=== PATIENT | male | born 1960 | race Caucasian/White ===

== ENCOUNTER → 2020-09-06 | Day surgery (SDC) | payer BC ==
[2020-09-03 12:51] LABS: BASOPHILS % 0.3 % (0.0-1.0); EOSINOPHILS # (AUTO) 0.1 (0.0-0.4); EOSINOPHILS % 2.3 % (0.0-6.0); HEMATOCRIT 41.5 % (38.2-49.6); HEMOGLOBIN 14.2 g/dL (14.0-18.0); LYMPHOCYTES % 17.2 % (18.0-39.1); MEAN CORPUSCULAR HGB CONC 34.2 g/dL (31-35); MEAN CORPUSCULAR VOLUME 96.5 fL (81-99); MONOCYTES # (AUTO) 0.6 (0.2-0.8); MONOCYTES % 10.4 % (4.4-11.3); NEUTROPHILS # (AUTO) 4.2 (2.1-6.9); NEUTROPHILS % 69.5 % (38.7-80.0); PLATELET COUNT 158 x10e3/uL (140-360); RED CELL DISTRIBUTION WIDTH 13.8 % (11.7-14.4)
[2020-09-03 13:04] LABS: ALANINE AMINOTRANSFERASE 35 IU/L (0-55); ALBUMIN 4.2 g/dL (3.5-5.0); ALBUMIN/GLOBULIN RATIO 1.4 (0.8-2.0); ALKALINE PHOSPHATASE 65 IU/L (40-150); ANION GAP 17.1 mmol/L (8-16); BLOOD UREA NITROGEN 13 mg/dL (7-26); BUN/CREATININE RATIO 11 (6-25); CALCIUM 8.6 mg/dL (8.4-10.2); CARBON DIOXIDE 25 mmol/L (22-29); CHLORIDE 105 mmol/L (98-107); CREATININE, SERUM 1.22 mg/dL (0.72-1.25); EST GLOMERULAR FILTRATION RATE > 60 ML/MIN (60-); GLUCOSE 113 mg/dL (74-118); POTASSIUM 4.1 mmol/L (3.5-5.1); SODIUM 143 mmol/L (136-145)
[~2020-09-06] MED LIST: ASPIRIN325 MG PO; B&O 60MG R/S 60 MG SUPP PR ONE; CEFTRIAXONE SOD 1 GM/NS 50 ML 50 ML IV ONE; DEXAMETHASONE SOD PHOS INJ 4 MG/ML VIAL ONE; FENTANYL CITRATE/PF 100MCG/2 ML INJ ONE; GENTAMICIN 80MG/NS 100 ML 100 ML IV ONE; IOPAMIDOL 300MG/ML 50ML INFUS..BTL IV ONE; LIDOCAINE HCL 2% JELLY 5 ML TUBE ONE; LIDOCAINE HCL 2% LOCAL INJ 5 ML SDV VIAL INJ ONE; MIDAZOLAM HCL 2 MG/2 ML VIAL ONE; ONDANSETRON HCL INJ 2MG/ML 2ML 2 MG/ML VIAL ONE; PROPOFOL IV EMULSION 10 MG/ML 20 ML VIAL ONE; ROCURONIUM BROMIDE 10 MG/ML 5ML VIAL IV ONE; SEVOFLURANE INHAL SOLN 250 ML PEN BTL ONE; SUCCINYLCHOLINE CHLORIDE 20 MG/ML 10ML VIAL ONE
[2020-09-06 16:37] VITALS: BP 175/79
== END | disposition home or self-care (01) ==
LOC: OR 12:55
PROVIDERS: ATTEND Urology
DX: N20.0 Calculus of kidney (principal); N32.89 Other specified disorders of bladder; N40.0 Benign prostatic hyperplasia without lower urinary tract symptoms; R35.1 Nocturia; I86.1 Scrotal varices; E66.9 Obesity, unspecified; Z01.810 Encounter for preprocedural cardiovascular examination; Z01.812 Encounter for preprocedural laboratory examination; Z20.828 Contact with and (suspected) exposure to other viral communicable diseases; Z79.82 Long term (current) use of aspirin; Z68.42 Body mass index [BMI] 45.0-49.9, adult; Z84.1 Family history of disorders of kidney and ureter
CPT/HCPCS: 36415; 52356; 74420; 80053; 83970; 84550; 85025; 93005; J0330; J0696; J1100; J1580; J2001 ×2; J2250; J2405; J2704; J3010; Q9967; U0002; C2617

== ENCOUNTER → 2020-12-04 | Day surgery (SDC) | payer BC ==
[~2020-12-04] MED LIST changes: +CEFTRIAXONE SOD 1 GM VIAL ONE; -CEFTRIAXONE SOD 1 GM/NS 50 ML 50 ML IV ONE; -GENTAMICIN 80MG/NS 100 ML 100 ML IV ONE; +LEVOFLOXACIN 250MG/D5W 50ML 50 ML ONE; +LEVOFLOXACIN 500MG/D5W 100ML 100 ML IV ONE; +LEVOFLOXACIN250 MG PO; -ROCURONIUM BROMIDE 10 MG/ML 5ML VIAL IV ONE; +SODIUM CHLORIDE 0.9% 50ML 100 ML ONE; -SUCCINYLCHOLINE CHLORIDE 20 MG/ML 10ML VIAL ONE
[2020-12-04 11:15] VITALS: BP 149/82
== END | disposition home or self-care (01) ==
LOC: OR 06:34
PROVIDERS: ATTEND Urology
DX: N20.0 Calculus of kidney (principal); N13.30 Unspecified hydronephrosis; N40.1 Benign prostatic hyperplasia with lower urinary tract symptoms; N13.8 Other obstructive and reflux uropathy; Z46.6 Encounter for fitting and adjustment of urinary device; N28.89 Other specified disorders of kidney and ureter; G47.33 Obstructive sleep apnea (adult) (pediatric); E66.9 Obesity, unspecified; M19.90 Unspecified osteoarthritis, unspecified site; M06.9 Rheumatoid arthritis, unspecified; F17.210 Nicotine dependence, cigarettes, uncomplicated; Z88.8 Allergy status to other drugs, medicaments and biological substances; Z01.810 Encounter for preprocedural cardiovascular examination; Z79.82 Long term (current) use of aspirin; Z86.16 Personal history of COVID-19
CPT/HCPCS: 52332; 52352; 74420; 87086; 88300; 93005; C1766; C1769; C2617; J0696; J1100; J1956 ×2; J2001 ×2; J2250; J2405; J2704; J3010; Q9967

== ENCOUNTER → 2021-01-01 | Day surgery (SDC) | payer BC ==
[~2021-01-01] MED LIST changes: -LEVOFLOXACIN 250MG/D5W 50ML 50 ML ONE; -LEVOFLOXACIN 500MG/D5W 100ML 100 ML IV ONE; -LIDOCAINE HCL 2% JELLY 5 ML TUBE ONE; -SODIUM CHLORIDE 0.9% 50ML 100 ML ONE; +SODIUM CHLORIDE 0.9% 50ML 50 ML ONE
[2021-01-01 12:10] VITALS: BP 145/72
== END | disposition home or self-care (01) ==
LOC: OR 07:43
PROVIDERS: ATTEND Urology
DX: N20.0 Calculus of kidney (principal); Z46.6 Encounter for fitting and adjustment of urinary device; N32.89 Other specified disorders of bladder; N28.89 Other specified disorders of kidney and ureter; G47.33 Obstructive sleep apnea (adult) (pediatric); I45.10 Unspecified right bundle-branch block; Z88.8 Allergy status to other drugs, medicaments and biological substances; Z01.818 Encounter for other preprocedural examination; Z79.82 Long term (current) use of aspirin; Z86.16 Personal history of COVID-19
CPT/HCPCS: 52356; 74018; 74420; 88300; C1766; C2617; J0696; J1100; J2001; J2250; J2405; J2704; J3010; Q9967

== ENCOUNTER 2021-01-08 09:47 | Inpatient (IN) | payer BC ==
[~2021-01-08] VITALS: Ht 190.5 cm; Wt 168.7 kg
[~2021-01-08 09:47] MED LIST changes: -B&O 60MG R/S 60 MG SUPP PR ONE; -CEFTRIAXONE SOD 1 GM VIAL ONE; -DEXAMETHASONE SOD PHOS INJ 4 MG/ML VIAL ONE; -FENTANYL CITRATE/PF 100MCG/2 ML INJ ONE; -IOPAMIDOL 300MG/ML 50ML INFUS..BTL IV ONE; -LIDOCAINE HCL 2% LOCAL INJ 5 ML SDV VIAL INJ ONE; -MIDAZOLAM HCL 2 MG/2 ML VIAL ONE; -ONDANSETRON HCL INJ 2MG/ML 2ML 2 MG/ML VIAL ONE; -PROPOFOL IV EMULSION 10 MG/ML 20 ML VIAL ONE; -SEVOFLURANE INHAL SOLN 250 ML PEN BTL ONE; -SODIUM CHLORIDE 0.9% 50ML 50 ML ONE
[2021-01-08] MEDS ORDERED: ACETAMINOPHEN 325 MG TAB PO ONE (10:30)
[2021-01-08] MEDS ORDERED: ACETAMINOPHEN 325 MG TAB ONE (10:31)
[2021-01-08 10:35] LABS: BASOPHILS % 0.2 % (0.0-1.0); EOSINOPHILS % 0.4 % (0.0-6.0); HEMATOCRIT 41.1 % (38.2-49.6); LYMPHOCYTES # (AUTO) 0.8 (1.0-3.2); LYMPHOCYTES % 7.5 % (18.0-39.1); MEAN CORPUSCULAR HEMOGLOBIN 33.4 pg (28-32); MEAN CORPUSCULAR HGB CONC 34.1 g/dL (31-35); MEAN CORPUSCULAR VOLUME 98.1 fL (81-99); MONOCYTES # (AUTO) 1.2 (0.2-0.8); MONOCYTES % 10.8 % (4.4-11.3); NEUTROPHILS % 80.7 % (38.7-80.0); PLATELET COUNT 165 x10e3/uL (140-360); RED BLOOD COUNT 4.19 x10e6/uL (4.3-5.7); RED CELL DISTRIBUTION WIDTH 13.3 % (11.7-14.4)
[2021-01-08 10:47] LABS: CLARITY,URINE SL CLOUDY (CLEAR); COLOR,URINE YELLOW (YELLOW); KETONES,URINE NEGATIVE (NEGATIVE); LEUKOCYTE ESTERASE ,URINE MODERATE (NEGATIVE); NITRITE,URINE NEGATIVE (NEGATIVE); PROTEIN,URINE DIPSTICK 2+ (NEGATIVE); URINE UROBILINOGEN 0.2 mg/dL (0.2 - 1)
[2021-01-08 10:55] LABS: ALBUMIN 3.9 g/dL (3.5-5.0); ALBUMIN/GLOBULIN RATIO 1.1 (0.8-2.0); ANION GAP 14.8 mmol/L (8-16); CALCIUM 8.8 mg/dL (8.4-10.2); CREATININE, SERUM 1.3 mg/dL (0.72-1.25); POTASSIUM 3.8 mmol/L (3.5-5.1)
[2021-01-08 10:59] LABS: BACTERIA,URINE MODERATE /HPF; MUCUS,URINE FEW (RARE); WBC,URINE (MAN) 21-50 /HPF (0-5)
[2021-01-08] MEDS ORDERED: PIPERACILLIN/TAZO 4.5 GM 100 ML IV STA (12:17)
[2021-01-08] MEDS ORDERED: ONDANSETRON HCL INJ 2MG/ML 2ML 2 MG/ML VIAL IV PRN (13:00)
[2021-01-08] MEDS ORDERED: MORPHINE SULFATE INJ 4 MG/ML INJ 1ML IV PRN (13:00)
[2021-01-08] MEDS: SODIUM CHLORIDE 0.9% 1000ML 1,000 ML IV SCH (15:00)
[2021-01-08] MEDS: ACETAMINOPHEN 325 MG TAB PO PRN ×2 (15:38→19:54)
[2021-01-08 17:07] VITALS: BP 133/34
[2021-01-08 17:15] VITALS: BP 133/34
[2021-01-08 17:22] VITALS: BP 133/34
[2021-01-08 20:00] VITALS: BP 128/65
[2021-01-08 20:57] VITALS: BP 128/65
[2021-01-08] MEDS: PIPERACILLIN/TAZOBAC 3.375 GM in SODIUM CHLORIDE 0.9% 50ML 50 ML IV SCH (21:43)
[2021-01-09] VITALS (7 sets, daily range): BP systolic 100–131; BP diastolic 52–77
[2021-01-09] MEDS: ACETAMINOPHEN 325 MG TAB PO PRN ×3 (01:15→13:50)
[2021-01-09] MEDS: SODIUM CHLORIDE 0.9% 1000ML 1,000 ML IV SCH ×3 (01:19→22:30)
[2021-01-09 05:06] LABS: BASOPHILS # (AUTO) 0.1 (0.0-0.1); BASOPHILS % 0.3 % (0.0-1.0); EOSINOPHILS % 0.2 % (0.0-6.0); HEMATOCRIT 39.5 % (38.2-49.6); HEMOGLOBIN 13.1 g/dL (14.0-18.0); LYMPHOCYTES # (AUTO) 0.7 (1.0-3.2); LYMPHOCYTES % 3.6 % (18.0-39.1); MEAN CORPUSCULAR HEMOGLOBIN 33.2 pg (28-32); MEAN CORPUSCULAR HGB CONC 33.2 g/dL (31-35); MONOCYTES # (AUTO) 1.8 (0.2-0.8); MONOCYTES % 9.9 % (4.4-11.3); NEUTROPHILS # (AUTO) 15.2 (2.1-6.9); NEUTROPHILS % 84.8 % (38.7-80.0); PLATELET COUNT 147 x10e3/uL (140-360); RED BLOOD COUNT 3.95 x10e6/uL (4.3-5.7); RED CELL DISTRIBUTION WIDTH 13.5 % (11.7-14.4)
[2021-01-09] MEDS: PIPERACILLIN/TAZOBAC 3.375 GM in SODIUM CHLORIDE 0.9% 50ML 50 ML IV SCH ×3 (05:27→17:18)
[2021-01-09 05:32] LABS: ANION GAP 16.1 mmol/L (8-16); CALCIUM 8.3 mg/dL (8.4-10.2); CREATININE, SERUM 1.81 mg/dL (0.72-1.25); POTASSIUM 4.1 mmol/L (3.5-5.1)
[2021-01-10] VITALS (7 sets, daily range): BP systolic 117–152; BP diastolic 70–82
[2021-01-10] MEDS: PIPERACILLIN/TAZOBAC 3.375 GM in SODIUM CHLORIDE 0.9% 50ML 50 ML IV SCH (05:02)
[2021-01-10 05:20] LABS: BASOPHILS % 0.3 % (0.0-1.0); EOSINOPHILS % 0.2 % (0.0-6.0); HEMATOCRIT 35.8 % (38.2-49.6); HEMOGLOBIN 12.3 g/dL (14.0-18.0); LYMPHOCYTES # (AUTO) 0.9 (1.0-3.2); LYMPHOCYTES % 8.1 % (18.0-39.1); MEAN CORPUSCULAR HEMOGLOBIN 33.2 pg (28-32); MEAN CORPUSCULAR HGB CONC 34.4 g/dL (31-35); MEAN CORPUSCULAR VOLUME 96.8 fL (81-99); MONOCYTES # (AUTO) 1.5 (0.2-0.8); MONOCYTES % 13.8 % (4.4-11.3); NEUTROPHILS # (AUTO) 8.6 (2.1-6.9); NEUTROPHILS % 77.1 % (38.7-80.0); PLATELET COUNT 131 x10e3/uL (140-360); RED CELL DISTRIBUTION WIDTH 13.4 % (11.7-14.4)
[2021-01-10 05:56] LABS: ANION GAP 14.5 mmol/L (8-16); CALCIUM 8.1 mg/dL (8.4-10.2); CREATININE, SERUM 1.45 mg/dL (0.72-1.25); POTASSIUM 3.5 mmol/L (3.5-5.1)
[2021-01-10] MEDS: AMPICILLIN SOD 2 GM/NS 100ML 100 ML IV SCH ×3 (12:00→23:59)
[2021-01-10] MEDS: SODIUM CHLORIDE 0.9% 1000ML 1,000 ML IV SCH ×2 (12:16→21:57)
[2021-01-11] VITALS (9 sets, daily range): BP systolic 125–154; BP diastolic 73–96
[2021-01-11] MEDS: SODIUM CHLORIDE 0.9% 1000ML 1,000 ML IV SCH ×3 (00:09→20:47)
[2021-01-11 05:24] LABS: BASOPHILS % 0.2 % (0.0-1.0); EOSINOPHILS # (AUTO) 0.1 (0.0-0.4); HEMATOCRIT 35.6 % (38.2-49.6); HEMOGLOBIN 11.9 g/dL (14.0-18.0); LYMPHOCYTES # (AUTO) 1.2 (1.0-3.2); LYMPHOCYTES % 14.2 % (18.0-39.1); MEAN CORPUSCULAR HEMOGLOBIN 33.1 pg (28-32); MEAN CORPUSCULAR HGB CONC 33.4 g/dL (31-35); MEAN CORPUSCULAR VOLUME 99.2 fL (81-99); MONOCYTES # (AUTO) 0.7 (0.2-0.8); NEUTROPHILS # (AUTO) 6.2 (2.1-6.9); PLATELET COUNT 145 x10e3/uL (140-360); RED BLOOD COUNT 3.59 x10e6/uL (4.3-5.7); RED CELL DISTRIBUTION WIDTH 13.5 % (11.7-14.4)
[2021-01-11 05:43] LABS: ANION GAP 15.8 mmol/L (8-16); CALCIUM 8.5 mg/dL (8.4-10.2); CREATININE, SERUM 1.38 mg/dL (0.72-1.25); POTASSIUM 3.8 mmol/L (3.5-5.1)
[2021-01-11] MEDS: AMPICILLIN SOD 2 GM/NS 100ML 100 ML IV SCH ×3 (05:43→17:01)
[2021-01-12] MEDS: AMPICILLIN SOD 2 GM/NS 100ML 100 ML IV SCH ×3 (00:54→12:08)
[2021-01-12 05:37] VITALS: BP 132/86
[2021-01-12] MEDS: SODIUM CHLORIDE 0.9% 1000ML 1,000 ML IV SCH (05:49)
[2021-01-12 07:42] VITALS: BP 132/83
[2021-01-12 08:14] VITALS: BP 132/83
[2021-01-12] MEDS ORDERED: PENICILLIN V P500 MG PO (11:46)
[2021-01-12 12:10] VITALS: BP 134/76
== END 2021-01-12 13:36 | disposition home or self-care (01) | DRG 872 ==
LOC: ER 10:00 → ERHOLD 13:27 → MED/SURG2 14:45
PROVIDERS: ADMIT Internal Medicine; ATTEND Internal Medicine
DX: A41.9 Sepsis, unspecified organism (principal); N17.9 Acute kidney failure, unspecified; Z68.42 Body mass index [BMI] 45.0-49.9, adult; N39.0 Urinary tract infection, site not specified; E66.01 Morbid (severe) obesity due to excess calories; N18.30 Chronic kidney disease, stage 3 unspecified; N20.0 Calculus of kidney; Z87.442 Personal history of urinary calculi; Z88.8 Allergy status to other drugs, medicaments and biological substances; Z82.49 Family history of ischemic heart disease and other diseases of the circulatory system; G47.33 Obstructive sleep apnea (adult) (pediatric); B95.2 Enterococcus as the cause of diseases classified elsewhere; D64.9 Anemia, unspecified; Z20.822 Contact with and (suspected) exposure to COVID-19
CPT/HCPCS: 36415; 71046; 74176; 80048; 80053; 81001; 82948; 83605; 83735; 85025; 87040; 87086; 87186; 94660; 99284; J2270; J2405; J2543; J7030; U0002

== ENCOUNTER 2022-02-23 15:47 | Inpatient (IN) | payer BC ==
[~2022-02-23] VITALS: Ht 188 cm; Wt 192.8 kg
[~2022-02-23 15:47] MED LIST changes: +PENICILLIN V P500 MG PO
[2022-02-23] MEDS ORDERED: SODIUM CHLORIDE 0.9% 1000ML 1,000 ML IV STA ×2 (17:18)
[2022-02-23] MEDS ORDERED: Vancomycin IV 1 GM in SODIUM CHLORIDE 0.9% 250ML 250 ML IV STA (17:18)
[2022-02-23] MEDS ORDERED: ACETAMINOPHEN 325 MG TAB PO ONE (17:30)
[2022-02-23 17:43] LABS: BASOPHILS % 0.3 % (0.0-1.0); EOSINOPHILS # (AUTO) 0.1 (0.0-0.4); EOSINOPHILS % 0.9 % (0.0-6.0); HEMATOCRIT 45.8 % (38.2-49.6); HEMOGLOBIN 15.6 g/dL (14.0-18.0); LYMPHOCYTES % 9.4 % (18.0-39.1); MEAN CORPUSCULAR HEMOGLOBIN 34.7 pg (28-32); MEAN CORPUSCULAR HGB CONC 34.1 g/dL (31-35); MEAN CORPUSCULAR VOLUME 101.8 fL (81-99); MONOCYTES % 9.6 % (4.4-11.3); NEUTROPHILS # (AUTO) 8.1 (2.1-6.9); NEUTROPHILS % 79.4 % (38.7-80.0); PLATELET COUNT 211 x10e3/uL (140-360); RED CELL DISTRIBUTION WIDTH 14.4 % (11.7-14.4)
[2022-02-23 17:51] LABS: INR 1.08
[2022-02-23 17:52] LABS: PARTIAL THROMBOPLASTIN TIME 30.3 seconds (23.8-35.5)
[2022-02-23 17:58] LABS: ANION GAP 16.9 mmol/L (8-16); CALCIUM 8.9 mg/dL (8.4-10.2); CREATININE, SERUM 1.53 mg/dL (0.72-1.25); POTASSIUM 3.9 mmol/L (3.5-5.1)
[2022-02-23 18:09] LABS: B-TYPE NATRIURETIC PEPTIDE2 54.7 pg/mL (0-100)
[2022-02-23] MEDS ORDERED: IOPAMIDOL 370 MG/ML 100 ML INFUS..BTL INJ ONE (18:18)
[2022-02-23] MEDS ORDERED: ONDANSETRON HCL INJ 2MG/ML 2ML 2 MG/ML VIAL IV PRN (20:30)
[2022-02-23] MEDS ORDERED: Morphine 2mg Syringe 2 MG/ML SYR IV PRN (20:30)
[2022-02-23 21:09] VITALS: BP 143/78
[2022-02-23] MEDS: SODIUM CHLORIDE 0.9% 1000ML 1,000 ML IV SCH (23:05)
[2022-02-23 23:28] VITALS: BP 143/78
[2022-02-23 23:50] VITALS: BP 143/78
[2022-02-24] VITALS (8 sets, daily range): BP systolic 123–181; BP diastolic 72–107
[2022-02-24 04:07] LABS: CLARITY,URINE SL CLOUDY (CLEAR); COLOR,URINE YELLOW (YELLOW)
[2022-02-24 04:08] LABS: KETONES,URINE TRACE (NEGATIVE); LEUKOCYTE ESTERASE ,URINE NEGATIVE (NEGATIVE); NITRITE,URINE NEGATIVE (NEGATIVE); PROTEIN,URINE DIPSTICK NEGATIVE (NEGATIVE); URINE UROBILINOGEN 0.2 mg/dL (0.2 - 1)
[2022-02-24 04:12] LABS: BACTERIA,URINE FEW /HPF; EPITHELIAL CELLS,URINE RARE /LPF; WBC,URINE (MAN) 0-5 /HPF (0-5)
[2022-02-24] MEDS: SODIUM CHLORIDE 0.9% 1000ML 1,000 ML IV SCH ×2 (04:44→14:45)
[2022-02-24 06:48] LABS: BASOPHILS % 0.3 % (0.0-1.0); EOSINOPHILS # (AUTO) 0.1 (0.0-0.4); EOSINOPHILS % 1.9 % (0.0-6.0); HEMOGLOBIN 14.4 g/dL (14.0-18.0); LYMPHOCYTES # (AUTO) 0.9 (1.0-3.2); LYMPHOCYTES % 11.5 % (18.0-39.1); MEAN CORPUSCULAR HEMOGLOBIN 34.6 pg (28-32); MEAN CORPUSCULAR HGB CONC 33.5 g/dL (31-35); MEAN CORPUSCULAR VOLUME 103.4 fL (81-99); MONOCYTES # (AUTO) 1.1 (0.2-0.8); MONOCYTES % 14.5 % (4.4-11.3); NEUTROPHILS # (AUTO) 5.3 (2.1-6.9); NEUTROPHILS % 71.4 % (38.7-80.0); PLATELET COUNT 183 x10e3/uL (140-360); RED BLOOD COUNT 4.16 x10e6/uL (4.3-5.7); RED CELL DISTRIBUTION WIDTH 14.6 % (11.7-14.4)
[2022-02-24 07:09] LABS: ANION GAP 13.8 mmol/L (8-16); CALCIUM 8.5 mg/dL (8.4-10.2); CREATININE, SERUM 1.21 mg/dL (0.72-1.25); POTASSIUM 3.8 mmol/L (3.5-5.1)
[2022-02-24] MEDS: CLINDAMYCIN 600MG / 50ML 50 ML IV SCH ×2 (14:45→21:50)
[2022-02-25] VITALS (8 sets, daily range): BP systolic 103–142; BP diastolic 56–87
[2022-02-25] MEDS: SODIUM CHLORIDE 0.9% 1000ML 1,000 ML IV SCH ×2 (01:30→13:22)
[2022-02-25] MEDS: CLINDAMYCIN 600MG / 50ML 50 ML IV SCH ×3 (05:02→22:30)
[2022-02-25] MEDS ORDERED: SUGAMMADEX SODIUM 200 MG/2 ML VIAL IV ONE (12:48)
[2022-02-25] MEDS ORDERED: SEVOFLURANE INHAL SOLN 250 ML PEN BTL ONE (13:07)
[2022-02-25] MEDS ORDERED: ONDANSETRON HCL INJ 2MG/ML 2ML 2 MG/ML VIAL ONE (13:07)
[2022-02-25] MEDS ORDERED: DEXAMETHASONE SOD PHOS INJ 4 MG/ML SDV ONE (13:07)
[2022-02-25] MEDS ORDERED: SUCCINYLCHOLINE CHLORIDE 20 MG/ML 10ML VIAL ONE (13:07)
[2022-02-25] MEDS ORDERED: LIDOCAINE HCL 2% LOCAL INJ 5 ML SDV VIAL INJ ONE (13:07)
[2022-02-25] MEDS ORDERED: ROCURONIUM BROMIDE 10 MG/ML 5ML VIAL IV ONE (13:07)
[2022-02-25] MEDS ORDERED: PROPOFOL IV EMULSION 10 MG/ML 20 ML VIAL ONE (13:07)
[2022-02-25] MEDS ORDERED: POVIDONE IODINE 0.05% 0.05 % ML PO ONE (13:07)
[2022-02-25] MEDS ORDERED: FENTANYL CITRATE/PF 100MCG/2 ML INJ ONE (13:13)
[2022-02-25] MEDS ORDERED: MIDAZOLAM HCL 2 MG/2 ML VIAL ONE (13:13)
[2022-02-25] MEDS ORDERED: HYDROCODONE/APAP 7.5MG-325MG 1 EA TAB PO PRN (13:30)
[2022-02-26 00:07] VITALS: BP 117/67
[2022-02-26] MEDS: SODIUM CHLORIDE 0.9% 1000ML 1,000 ML IV SCH (04:57)
[2022-02-26 05:04] LABS: BASOPHILS % 0.7 % (0.0-1.0); EOSINOPHILS # (AUTO) 0.2 (0.0-0.4); EOSINOPHILS % 2.5 % (0.0-6.0); HEMATOCRIT 41.9 % (38.2-49.6); HEMOGLOBIN 13.8 g/dL (14.0-18.0); LYMPHOCYTES # (AUTO) 1.1 (1.0-3.2); LYMPHOCYTES % 17.7 % (18.0-39.1); MEAN CORPUSCULAR HGB CONC 32.9 g/dL (31-35); MEAN CORPUSCULAR VOLUME 103.2 fL (81-99); MONOCYTES # (AUTO) 0.7 (0.2-0.8); MONOCYTES % 11.7 % (4.4-11.3); NEUTROPHILS % 66.7 % (38.7-80.0); PLATELET COUNT 177 x10e3/uL (140-360); RED BLOOD COUNT 4.06 x10e6/uL (4.3-5.7); RED CELL DISTRIBUTION WIDTH 14.1 % (11.7-14.4)
[2022-02-26] MEDS: CLINDAMYCIN 600MG / 50ML 50 ML IV SCH (05:30)
[2022-02-26 05:35] LABS: ANION GAP 12.9 mmol/L (8-16); CALCIUM 8.4 mg/dL (8.4-10.2); CREATININE, SERUM 1.06 mg/dL (0.72-1.25); POTASSIUM 3.9 mmol/L (3.5-5.1)
[2022-02-26 05:36] VITALS: BP 133/72
[2022-02-26 08:36] VITALS: BP 123/86
[2022-02-26 11:54] VITALS: BP 153/84
[2022-02-26] MEDS ORDERED: CLINDAMYCIN HCL 150 MG CAP PO SCH (14:00)
[2022-02-26 16:18] VITALS: BP 146/98
== END 2022-02-26 17:18 | disposition home or self-care (01) | DRG 264 ==
LOC: ER 17:09 → INTOOBSV 20:28 → ERHOLD 20:28 → MED/SURG2 21:23 → OBSVTOIN 02-25 15:34
PROVIDERS: ADMIT Family Medicine; ATTEND Family Medicine
PROC: 0JB90ZZ Excision of Buttock Subcutaneous Tissue and Fascia, Open Approach (ICD-10-PCS; principal; 2022-02-25 12:39)
DX: I96 Gangrene, not elsewhere classified (principal); L02.31 Cutaneous abscess of buttock; Z68.43 Body mass index [BMI] 50.0-59.9, adult; L03.317 Cellulitis of buttock; I10 Essential (primary) hypertension; E66.01 Morbid (severe) obesity due to excess calories; B95.62 Methicillin resistant Staphylococcus aureus infection as the cause of diseases classified elsewhere; J44.9 Chronic obstructive pulmonary disease, unspecified; G47.33 Obstructive sleep apnea (adult) (pediatric); I12.9 Hypertensive chronic kidney disease with stage 1 through stage 4 chronic kidney disease, or unspecified chronic kidney disease; N18.9 Chronic kidney disease, unspecified; N20.0 Calculus of kidney; E03.9 Hypothyroidism, unspecified; Z79.899 Other long term (current) drug therapy
CPT/HCPCS: 36415; 71046; 72193; 76882; 80048; 80053; 81001; 82550; 82553; 83605; 83880; 84484; 85025; 85610; 85730; 87040; 87071; 87075; 87086; 87186; 87205; 93005; 99284; G0378; J0330; J0692; J1100; J2001; J2250; J2405; J2543; J3010; J3370; J7030; J7050; Q9967; U0002

== ENCOUNTER → 2022-03-03 | Outpatient (CLI) | payer BC | LOC: US 11:25 | PROVIDERS: ATTEND Family Medicine | DX: E03.9 Hypothyroidism, unspecified (principal) | CPT/HCPCS: 76536 ==

== ENCOUNTER → 2022-03-05 | Outpatient (CLI) | payer BC ==
[~2022-03-05] MED LIST changes: +LIDOCAINE VISC 2% SOLN 15 ML UDC ONE; +TRIAMCINOLONE ACET 0.1% CREAM 15 GM TUBE ONE
== END ==
LOC: WCC 09:12
PROVIDERS: ATTEND Family Medicine Adult Medicine
DX: T81.89XA Other complications of procedures, not elsewhere classified, initial encounter (principal); K68.12 Psoas muscle abscess; I87.2 Venous insufficiency (chronic) (peripheral); I89.0 Lymphedema, not elsewhere classified; R60.0 Localized edema; B35.1 Tinea unguium; N18.9 Chronic kidney disease, unspecified; I10 Essential (primary) hypertension; E03.9 Hypothyroidism, unspecified; M17.9 Osteoarthritis of knee, unspecified; A49.02 Methicillin resistant Staphylococcus aureus infection, unspecified site; E66.3 Overweight

== ENCOUNTER → 2022-03-10 | Outpatient (CLI) | payer BC ==
[~2022-03-10] MED LIST changes: -LIDOCAINE VISC 2% SOLN 15 ML UDC ONE; -TRIAMCINOLONE ACET 0.1% CREAM 15 GM TUBE ONE
== END ==
LOC: WCC 14:49
PROVIDERS: ATTEND Family Medicine Adult Medicine
DX: T81.89XA Other complications of procedures, not elsewhere classified, initial encounter (principal); K68.12 Psoas muscle abscess; I89.0 Lymphedema, not elsewhere classified; R60.0 Localized edema; I87.2 Venous insufficiency (chronic) (peripheral); B35.1 Tinea unguium; N18.9 Chronic kidney disease, unspecified; I10 Essential (primary) hypertension; E03.9 Hypothyroidism, unspecified; M17.9 Osteoarthritis of knee, unspecified; A49.02 Methicillin resistant Staphylococcus aureus infection, unspecified site; E66.3 Overweight

== ENCOUNTER → 2022-03-12 | Outpatient (CLI) | payer BC | LOC: WCC 11:16 | PROVIDERS: ATTEND Family Medicine Adult Medicine | DX: T81.89XA Other complications of procedures, not elsewhere classified, initial encounter (principal); K68.12 Psoas muscle abscess; I87.2 Venous insufficiency (chronic) (peripheral); R60.0 Localized edema; I89.0 Lymphedema, not elsewhere classified; B35.1 Tinea unguium; N18.9 Chronic kidney disease, unspecified; I10 Essential (primary) hypertension; E03.9 Hypothyroidism, unspecified; M17.9 Osteoarthritis of knee, unspecified; A49.02 Methicillin resistant Staphylococcus aureus infection, unspecified site; E66.3 Overweight ==

== ENCOUNTER → 2022-03-16 | Outpatient (CLI) | payer BC | LOC: WCC 13:37 | PROVIDERS: ATTEND Family Medicine Adult Medicine | DX: T81.89XA Other complications of procedures, not elsewhere classified, initial encounter (principal); K68.12 Psoas muscle abscess; B35.1 Tinea unguium; I87.2 Venous insufficiency (chronic) (peripheral); I89.0 Lymphedema, not elsewhere classified; R60.0 Localized edema; N18.9 Chronic kidney disease, unspecified; I10 Essential (primary) hypertension; E03.9 Hypothyroidism, unspecified; M17.9 Osteoarthritis of knee, unspecified; E66.3 Overweight; A49.02 Methicillin resistant Staphylococcus aureus infection, unspecified site ==

== ENCOUNTER → 2022-03-19 | Outpatient (CLI) | payer BC | LOC: WCC 13:43 | PROVIDERS: ATTEND Family Medicine Adult Medicine | DX: T81.89XA Other complications of procedures, not elsewhere classified, initial encounter (principal); B35.1 Tinea unguium; K68.12 Psoas muscle abscess; I87.2 Venous insufficiency (chronic) (peripheral); I89.0 Lymphedema, not elsewhere classified; R60.0 Localized edema; N18.9 Chronic kidney disease, unspecified; I10 Essential (primary) hypertension; M17.9 Osteoarthritis of knee, unspecified; E03.9 Hypothyroidism, unspecified; A49.02 Methicillin resistant Staphylococcus aureus infection, unspecified site; E66.3 Overweight ==

== ENCOUNTER → 2022-03-23 | Outpatient (CLI) | payer BC | LOC: WCC 12:54 | PROVIDERS: ATTEND Family Medicine Adult Medicine | DX: T81.89XA Other complications of procedures, not elsewhere classified, initial encounter (principal); K68.12 Psoas muscle abscess; I87.2 Venous insufficiency (chronic) (peripheral); I89.0 Lymphedema, not elsewhere classified; R60.0 Localized edema; B35.1 Tinea unguium; N18.9 Chronic kidney disease, unspecified; I10 Essential (primary) hypertension; E03.9 Hypothyroidism, unspecified; M17.9 Osteoarthritis of knee, unspecified; E66.3 Overweight; A49.02 Methicillin resistant Staphylococcus aureus infection, unspecified site ==

== ENCOUNTER → 2022-03-26 | Outpatient (CLI) | payer BC | LOC: WCC 08:45 | PROVIDERS: ATTEND Family Medicine Adult Medicine | DX: T81.89XA Other complications of procedures, not elsewhere classified, initial encounter (principal); K68.12 Psoas muscle abscess; B35.1 Tinea unguium; I89.0 Lymphedema, not elsewhere classified; I87.2 Venous insufficiency (chronic) (peripheral); R60.0 Localized edema; N18.9 Chronic kidney disease, unspecified; I10 Essential (primary) hypertension; M17.9 Osteoarthritis of knee, unspecified; E03.9 Hypothyroidism, unspecified; E66.3 Overweight; A49.02 Methicillin resistant Staphylococcus aureus infection, unspecified site ==

== ENCOUNTER → 2022-03-30 | Outpatient (CLI) | payer BC | LOC: WCC 14:27 | PROVIDERS: ATTEND Family Medicine Adult Medicine | DX: T81.89XA Other complications of procedures, not elsewhere classified, initial encounter (principal); K68.12 Psoas muscle abscess; I87.2 Venous insufficiency (chronic) (peripheral); I89.0 Lymphedema, not elsewhere classified; R60.0 Localized edema; B35.1 Tinea unguium; N18.9 Chronic kidney disease, unspecified; I10 Essential (primary) hypertension; E03.9 Hypothyroidism, unspecified; M17.9 Osteoarthritis of knee, unspecified; E66.3 Overweight; A49.02 Methicillin resistant Staphylococcus aureus infection, unspecified site ==

== ENCOUNTER → 2022-04-02 | Outpatient (CLI) | payer BC | LOC: WCC 12:55 | PROVIDERS: ATTEND Family Medicine Adult Medicine | DX: T81.89XA Other complications of procedures, not elsewhere classified, initial encounter (principal); K68.12 Psoas muscle abscess; I87.2 Venous insufficiency (chronic) (peripheral); I89.0 Lymphedema, not elsewhere classified; R60.0 Localized edema; B35.1 Tinea unguium; N18.9 Chronic kidney disease, unspecified; I10 Essential (primary) hypertension; E03.9 Hypothyroidism, unspecified; M17.9 Osteoarthritis of knee, unspecified; A49.02 Methicillin resistant Staphylococcus aureus infection, unspecified site; E66.3 Overweight ==

== ENCOUNTER → 2022-04-07 | Outpatient (CLI) | payer BC | LOC: WCC 16:07 | PROVIDERS: ATTEND Family Medicine Adult Medicine | DX: T81.89XA Other complications of procedures, not elsewhere classified, initial encounter (principal); K68.12 Psoas muscle abscess; B35.1 Tinea unguium; I87.2 Venous insufficiency (chronic) (peripheral); I89.0 Lymphedema, not elsewhere classified; R60.0 Localized edema; N18.9 Chronic kidney disease, unspecified; I10 Essential (primary) hypertension; E03.9 Hypothyroidism, unspecified; M17.9 Osteoarthritis of knee, unspecified; E66.3 Overweight; A49.02 Methicillin resistant Staphylococcus aureus infection, unspecified site ==

== ENCOUNTER → 2022-04-09 | Outpatient (CLI) | payer BC | LOC: WCC 16:04 | PROVIDERS: ATTEND Family Medicine Adult Medicine | DX: T81.89XA Other complications of procedures, not elsewhere classified, initial encounter (principal); B35.1 Tinea unguium; K68.12 Psoas muscle abscess; I87.2 Venous insufficiency (chronic) (peripheral); I89.0 Lymphedema, not elsewhere classified; R60.0 Localized edema; N18.9 Chronic kidney disease, unspecified; I10 Essential (primary) hypertension; E03.9 Hypothyroidism, unspecified; M17.9 Osteoarthritis of knee, unspecified; E66.3 Overweight; A49.02 Methicillin resistant Staphylococcus aureus infection, unspecified site ==

== ENCOUNTER → 2022-04-13 | Outpatient (CLI) | payer BC | LOC: WCC 14:44 | PROVIDERS: ATTEND Family Medicine Adult Medicine | DX: T81.89XA Other complications of procedures, not elsewhere classified, initial encounter (principal); B35.1 Tinea unguium; K68.12 Psoas muscle abscess; I87.2 Venous insufficiency (chronic) (peripheral); I89.0 Lymphedema, not elsewhere classified; R60.0 Localized edema; N18.9 Chronic kidney disease, unspecified; I10 Essential (primary) hypertension; E03.9 Hypothyroidism, unspecified; M17.9 Osteoarthritis of knee, unspecified; A49.02 Methicillin resistant Staphylococcus aureus infection, unspecified site; E66.3 Overweight ==

== ENCOUNTER → 2022-04-16 | Outpatient (CLI) | payer BC | LOC: WCC 14:51 | PROVIDERS: ATTEND Family Medicine Adult Medicine | DX: T81.89XA Other complications of procedures, not elsewhere classified, initial encounter (principal); K68.12 Psoas muscle abscess; B35.1 Tinea unguium; I87.2 Venous insufficiency (chronic) (peripheral); I89.0 Lymphedema, not elsewhere classified; R60.0 Localized edema; N18.9 Chronic kidney disease, unspecified; I10 Essential (primary) hypertension; E03.9 Hypothyroidism, unspecified; M17.9 Osteoarthritis of knee, unspecified; A49.02 Methicillin resistant Staphylococcus aureus infection, unspecified site; E66.3 Overweight ==

== ENCOUNTER → 2022-04-20 | Outpatient (CLI) | payer BC | LOC: WCC 13:11 | PROVIDERS: ATTEND Family Medicine Adult Medicine | DX: T81.89XA Other complications of procedures, not elsewhere classified, initial encounter (principal); K68.12 Psoas muscle abscess; B35.1 Tinea unguium; I87.2 Venous insufficiency (chronic) (peripheral); I89.0 Lymphedema, not elsewhere classified; R60.0 Localized edema; N18.9 Chronic kidney disease, unspecified; I10 Essential (primary) hypertension; E03.9 Hypothyroidism, unspecified; M17.9 Osteoarthritis of knee, unspecified; E66.3 Overweight; A49.02 Methicillin resistant Staphylococcus aureus infection, unspecified site ==

== ENCOUNTER → 2022-04-23 | Outpatient (CLI) | payer BC | LOC: WCC 12:22 | PROVIDERS: ATTEND Family Medicine Adult Medicine | DX: T81.89XA Other complications of procedures, not elsewhere classified, initial encounter (principal); K68.12 Psoas muscle abscess; B35.1 Tinea unguium; I87.2 Venous insufficiency (chronic) (peripheral); I89.0 Lymphedema, not elsewhere classified; R60.0 Localized edema; N18.9 Chronic kidney disease, unspecified; I10 Essential (primary) hypertension; E03.9 Hypothyroidism, unspecified; M17.9 Osteoarthritis of knee, unspecified; A49.02 Methicillin resistant Staphylococcus aureus infection, unspecified site; E66.3 Overweight ==

== ENCOUNTER → 2022-04-27 | Outpatient (CLI) | payer BC | LOC: WCC 11:27 | PROVIDERS: ATTEND Family Medicine Adult Medicine | DX: T81.89XA Other complications of procedures, not elsewhere classified, initial encounter (principal); B35.1 Tinea unguium; I89.0 Lymphedema, not elsewhere classified; I87.2 Venous insufficiency (chronic) (peripheral); R60.0 Localized edema; K68.12 Psoas muscle abscess; N18.9 Chronic kidney disease, unspecified; I10 Essential (primary) hypertension; E03.9 Hypothyroidism, unspecified; M17.9 Osteoarthritis of knee, unspecified; A49.02 Methicillin resistant Staphylococcus aureus infection, unspecified site; E66.3 Overweight ==

== ENCOUNTER → 2022-04-30 | Outpatient (CLI) | payer BC ==
[~2022-04-30] MED LIST changes: +FUROSEMIDE40 MG PO; +ULTRAM50 MG PO
== END ==
LOC: WCC 13:21
PROVIDERS: ATTEND Family Medicine Adult Medicine
DX: T81.89XA Other complications of procedures, not elsewhere classified, initial encounter (principal); B35.1 Tinea unguium; I87.2 Venous insufficiency (chronic) (peripheral); I89.0 Lymphedema, not elsewhere classified; R60.0 Localized edema; K68.12 Psoas muscle abscess; N18.9 Chronic kidney disease, unspecified; I10 Essential (primary) hypertension; E03.9 Hypothyroidism, unspecified; M17.9 Osteoarthritis of knee, unspecified; A49.02 Methicillin resistant Staphylococcus aureus infection, unspecified site; E66.3 Overweight

== ENCOUNTER 2022-05-01 18:49 | Observation (INO) | payer BC ==
[~2022-05-01] VITALS: Ht 188 cm; Wt 181.4 kg
[~2022-05-01 18:49] MED LIST changes: -FUROSEMIDE40 MG PO; -ULTRAM50 MG PO
[2022-05-01 19:32] LABS: BASOPHILS % 0.9 % (0.0-1.0); EOSINOPHILS # (AUTO) 0.2 (0.0-0.4); EOSINOPHILS % 3.4 % (0.0-6.0); HEMATOCRIT 43.3 % (38.2-49.6); HEMOGLOBIN 14.4 g/dL (14.0-18.0); LYMPHOCYTES # (AUTO) 1.2 (1.0-3.2); LYMPHOCYTES % 25.5 % (18.0-39.1); MEAN CORPUSCULAR HEMOGLOBIN 34.8 pg (28-32); MEAN CORPUSCULAR HGB CONC 33.3 g/dL (31-35); MEAN CORPUSCULAR VOLUME 104.6 fL (81-99); MONOCYTES # (AUTO) 0.6 (0.2-0.8); MONOCYTES % 13.4 % (4.4-11.3); NEUTROPHILS # (AUTO) 2.7 (2.1-6.9); NEUTROPHILS % 56.4 % (38.7-80.0); PLATELET COUNT 132 x10e3/uL (140-360); RED BLOOD COUNT 4.14 x10e6/uL (4.3-5.7); RED CELL DISTRIBUTION WIDTH 14.5 % (11.7-14.4)
[2022-05-01 19:53] LABS: ALBUMIN 3.9 g/dL (3.5-5.0); ALBUMIN/GLOBULIN RATIO 1.1 (0.8-2.0); ANION GAP 13.5 mmol/L (8-16); CALCIUM 8.3 mg/dL (8.4-10.2); CREATININE, SERUM 1.31 mg/dL (0.72-1.25); POTASSIUM 3.5 mmol/L (3.5-5.1)
[2022-05-01 19:59] LABS: CREATINE KINASE MB 1.6 ng/mL (0-5.0)
[2022-05-01] MEDS ORDERED: IOPAMIDOL 370 MG/ML 100 ML INFUS..BTL INJ ONE (21:44)
[2022-05-01] MEDS: FUROSEMIDE INJ 10 MG/ML 4 ML VIAL IV SCH (23:07)
[2022-05-02] VITALS (7 sets, daily range): BP systolic 123–157; BP diastolic 68–83
[2022-05-02 02:29] LABS: CREATINE KINASE MB 1.4 ng/mL (0-5.0)
[2022-05-02] MEDS ORDERED: ULTRAM50 MG PO (06:12)
[2022-05-02 07:38] LABS: CREATINE KINASE MB 1.3 ng/mL (0-5.0)
[2022-05-02] MEDS: SODIUM CHLORIDE FLUSH 10 ML SYR INJ PRN ×2 (10:12→17:41)
[2022-05-02] MEDS: FUROSEMIDE INJ 10 MG/ML 4 ML VIAL IV SCH ×2 (10:12→17:41)
[2022-05-02] MEDS ORDERED: FUROSEMIDE40 MG PO (13:59)
[2022-05-02 14:54] LABS: CREATINE KINASE MB 1.1 ng/mL (0-5.0)
== END 2022-05-02 20:05 | disposition home or self-care (01) ==
LOC: ER 19:06 → ERHOLD 22:34 → MED/SURG3 05-02 02:44
PROVIDERS: ADMIT Family Medicine; ATTEND Family Medicine
DX: R06.09 Other forms of dyspnea (principal); E66.01 Morbid (severe) obesity due to excess calories; Z20.822 Contact with and (suspected) exposure to COVID-19; I89.0 Lymphedema, not elsewhere classified; I50.9 Heart failure, unspecified; I11.0 Hypertensive heart disease with heart failure; E03.9 Hypothyroidism, unspecified; Z82.49 Family history of ischemic heart disease and other diseases of the circulatory system; Z87.442 Personal history of urinary calculi; S30.91XA Unspecified superficial injury of lower back and pelvis, initial encounter; Z68.43 Body mass index [BMI] 50.0-59.9, adult
CPT/HCPCS: 36415 ×2; 71045; 71260; 80053; 82550 ×2; 82553 ×2; 83880 ×2; 84484 ×2; 85025; 85379; 93306; 94799; 99285; G0378 ×2; J1940 ×2; Q9967; U0002

== ENCOUNTER → 2022-05-04 | Outpatient (CLI) | payer BC ==
[~2022-05-04] MED LIST changes: +FUROSEMIDE40 MG PO; +ULTRAM50 MG PO
== END ==
LOC: WCC 15:13
PROVIDERS: ATTEND Family Medicine Adult Medicine
DX: T81.89XA Other complications of procedures, not elsewhere classified, initial encounter (principal); B35.1 Tinea unguium; K68.12 Psoas muscle abscess; I87.2 Venous insufficiency (chronic) (peripheral); I89.0 Lymphedema, not elsewhere classified; R60.0 Localized edema; N18.9 Chronic kidney disease, unspecified; I10 Essential (primary) hypertension; E03.9 Hypothyroidism, unspecified; M17.9 Osteoarthritis of knee, unspecified; A49.02 Methicillin resistant Staphylococcus aureus infection, unspecified site; E66.3 Overweight

== ENCOUNTER → 2022-05-07 | Outpatient (CLI) | payer BC | LOC: WCC 11:41 | PROVIDERS: ATTEND Family Medicine Adult Medicine | DX: T81.89XA Other complications of procedures, not elsewhere classified, initial encounter (principal); B35.1 Tinea unguium; K68.12 Psoas muscle abscess; I87.2 Venous insufficiency (chronic) (peripheral); I89.0 Lymphedema, not elsewhere classified; R60.0 Localized edema; N18.9 Chronic kidney disease, unspecified; I10 Essential (primary) hypertension; E03.9 Hypothyroidism, unspecified; M17.9 Osteoarthritis of knee, unspecified; B96.89 Other specified bacterial agents as the cause of diseases classified elsewhere; E66.3 Overweight | CPT/HCPCS: 87071; 87075; 87186; 87205 ==

== ENCOUNTER → 2022-05-08 | Outpatient (CLI) | payer BC | LOC: WCC 14:15 | PROVIDERS: ATTEND Family Medicine Adult Medicine | DX: T81.89XA Other complications of procedures, not elsewhere classified, initial encounter (principal); K68.12 Psoas muscle abscess; B35.1 Tinea unguium; I87.2 Venous insufficiency (chronic) (peripheral); I89.0 Lymphedema, not elsewhere classified; R60.0 Localized edema; N18.9 Chronic kidney disease, unspecified; I10 Essential (primary) hypertension; E03.9 Hypothyroidism, unspecified; M17.9 Osteoarthritis of knee, unspecified; B96.89 Other specified bacterial agents as the cause of diseases classified elsewhere; E66.3 Overweight ==

== ENCOUNTER → 2022-05-11 | Outpatient (CLI) | payer BC | LOC: WCC 13:51 | PROVIDERS: ATTEND Family Medicine Adult Medicine | DX: T81.89XA Other complications of procedures, not elsewhere classified, initial encounter (principal); K68.12 Psoas muscle abscess; B35.1 Tinea unguium; I87.2 Venous insufficiency (chronic) (peripheral); I89.0 Lymphedema, not elsewhere classified; R60.0 Localized edema; N18.9 Chronic kidney disease, unspecified; I10 Essential (primary) hypertension; E03.9 Hypothyroidism, unspecified; M17.9 Osteoarthritis of knee, unspecified; B96.89 Other specified bacterial agents as the cause of diseases classified elsewhere; E66.3 Overweight ==

== ENCOUNTER → 2022-05-14 | Outpatient (CLI) | payer BC | LOC: WCC 10:19 | PROVIDERS: ATTEND Family Medicine Adult Medicine | DX: T81.89XA Other complications of procedures, not elsewhere classified, initial encounter (principal); K68.12 Psoas muscle abscess; I87.2 Venous insufficiency (chronic) (peripheral); I89.0 Lymphedema, not elsewhere classified; R60.0 Localized edema; N18.9 Chronic kidney disease, unspecified; I10 Essential (primary) hypertension; M17.9 Osteoarthritis of knee, unspecified; B96.89 Other specified bacterial agents as the cause of diseases classified elsewhere; E66.3 Overweight ==

== ENCOUNTER → 2022-05-18 | Outpatient (CLI) | payer BC | LOC: WCC 14:17 | PROVIDERS: ATTEND Family Medicine Adult Medicine | DX: T81.89XA Other complications of procedures, not elsewhere classified, initial encounter (principal); K68.12 Psoas muscle abscess; B35.1 Tinea unguium; I89.0 Lymphedema, not elsewhere classified; I87.2 Venous insufficiency (chronic) (peripheral); R60.0 Localized edema; N18.9 Chronic kidney disease, unspecified; I10 Essential (primary) hypertension; E03.9 Hypothyroidism, unspecified; M17.9 Osteoarthritis of knee, unspecified; B96.89 Other specified bacterial agents as the cause of diseases classified elsewhere; E66.3 Overweight ==

== ENCOUNTER → 2022-05-21 | Outpatient (CLI) | payer BC | LOC: WCC 14:45 | PROVIDERS: ATTEND Family Medicine Adult Medicine | DX: T81.89XA Other complications of procedures, not elsewhere classified, initial encounter (principal); B35.1 Tinea unguium; K68.12 Psoas muscle abscess; I87.2 Venous insufficiency (chronic) (peripheral); I89.0 Lymphedema, not elsewhere classified; R60.0 Localized edema; N18.9 Chronic kidney disease, unspecified; I10 Essential (primary) hypertension; E03.9 Hypothyroidism, unspecified; M17.9 Osteoarthritis of knee, unspecified; B96.89 Other specified bacterial agents as the cause of diseases classified elsewhere; E66.3 Overweight ==

== ENCOUNTER → 2022-05-25 | Outpatient (CLI) | payer BC | LOC: WCC 15:02 | PROVIDERS: ATTEND Family Medicine Adult Medicine | DX: T81.89XA Other complications of procedures, not elsewhere classified, initial encounter (principal); K68.12 Psoas muscle abscess; B35.1 Tinea unguium; I89.0 Lymphedema, not elsewhere classified; I87.2 Venous insufficiency (chronic) (peripheral); R60.0 Localized edema; N18.9 Chronic kidney disease, unspecified; I10 Essential (primary) hypertension; E03.9 Hypothyroidism, unspecified; B96.89 Other specified bacterial agents as the cause of diseases classified elsewhere; M17.9 Osteoarthritis of knee, unspecified; E66.3 Overweight ==

== ENCOUNTER → 2022-05-28 | Outpatient (CLI) | payer BC | LOC: WCC 09:30 | PROVIDERS: ATTEND Family Medicine Adult Medicine | DX: T81.89XA Other complications of procedures, not elsewhere classified, initial encounter (principal); K68.12 Psoas muscle abscess; B35.1 Tinea unguium; I87.2 Venous insufficiency (chronic) (peripheral); I89.0 Lymphedema, not elsewhere classified; R60.0 Localized edema; N18.9 Chronic kidney disease, unspecified; I10 Essential (primary) hypertension; E03.9 Hypothyroidism, unspecified; M17.9 Osteoarthritis of knee, unspecified; B96.89 Other specified bacterial agents as the cause of diseases classified elsewhere; E66.3 Overweight ==

== ENCOUNTER → 2022-06-01 | Outpatient (CLI) | payer BC | LOC: WCC 14:00 | PROVIDERS: ATTEND Family Medicine Adult Medicine | DX: T81.89XA Other complications of procedures, not elsewhere classified, initial encounter (principal); B35.1 Tinea unguium; K68.12 Psoas muscle abscess; I87.2 Venous insufficiency (chronic) (peripheral); I89.0 Lymphedema, not elsewhere classified; R60.0 Localized edema; N18.9 Chronic kidney disease, unspecified; I10 Essential (primary) hypertension; E03.9 Hypothyroidism, unspecified; M17.9 Osteoarthritis of knee, unspecified; E66.3 Overweight; A49.02 Methicillin resistant Staphylococcus aureus infection, unspecified site ==

== ENCOUNTER → 2022-06-04 | Outpatient (CLI) | payer BC ==
[~2022-06-04] MED LIST changes: +LIDOCAINE VISC 2% SOLN 15 ML UDC ONE
== END ==
LOC: WCC 09:36
PROVIDERS: ATTEND Family Medicine Adult Medicine
DX: T81.89XA Other complications of procedures, not elsewhere classified, initial encounter (principal); B35.1 Tinea unguium; K68.12 Psoas muscle abscess; I87.2 Venous insufficiency (chronic) (peripheral); I89.0 Lymphedema, not elsewhere classified; R60.0 Localized edema; N18.9 Chronic kidney disease, unspecified; I10 Essential (primary) hypertension; E03.9 Hypothyroidism, unspecified; M17.9 Osteoarthritis of knee, unspecified; A49.02 Methicillin resistant Staphylococcus aureus infection, unspecified site; E66.3 Overweight

== ENCOUNTER → 2022-06-09 | Outpatient (CLI) | payer BC ==
[~2022-06-09] MED LIST changes: -LIDOCAINE VISC 2% SOLN 15 ML UDC ONE
== END ==
LOC: WCC 15:16
PROVIDERS: ATTEND Family Medicine Adult Medicine
DX: T81.89XA Other complications of procedures, not elsewhere classified, initial encounter (principal); K68.12 Psoas muscle abscess; B35.1 Tinea unguium; I87.2 Venous insufficiency (chronic) (peripheral); I89.0 Lymphedema, not elsewhere classified; R60.0 Localized edema; N18.9 Chronic kidney disease, unspecified; I10 Essential (primary) hypertension; E03.9 Hypothyroidism, unspecified; M17.9 Osteoarthritis of knee, unspecified; E66.3 Overweight; A49.02 Methicillin resistant Staphylococcus aureus infection, unspecified site

== ENCOUNTER → 2022-06-11 | Outpatient (CLI) | payer BC | LOC: WCC 11:25 | PROVIDERS: ATTEND Family Medicine Adult Medicine | DX: T81.89XA Other complications of procedures, not elsewhere classified, initial encounter (principal); B35.1 Tinea unguium; K68.12 Psoas muscle abscess; I87.2 Venous insufficiency (chronic) (peripheral); I89.0 Lymphedema, not elsewhere classified; R60.0 Localized edema; N18.9 Chronic kidney disease, unspecified; I10 Essential (primary) hypertension; E03.9 Hypothyroidism, unspecified; M17.9 Osteoarthritis of knee, unspecified; A49.02 Methicillin resistant Staphylococcus aureus infection, unspecified site; E66.3 Overweight ==

== ENCOUNTER → 2022-06-15 | Outpatient (CLI) | payer BC | LOC: WCC 13:41 | PROVIDERS: ATTEND Family Medicine Adult Medicine | DX: T81.89XA Other complications of procedures, not elsewhere classified, initial encounter (principal); K68.12 Psoas muscle abscess; B35.1 Tinea unguium; I87.2 Venous insufficiency (chronic) (peripheral); I89.0 Lymphedema, not elsewhere classified; R60.0 Localized edema; N18.9 Chronic kidney disease, unspecified; I10 Essential (primary) hypertension; E03.9 Hypothyroidism, unspecified; M17.9 Osteoarthritis of knee, unspecified; E66.3 Overweight; A49.02 Methicillin resistant Staphylococcus aureus infection, unspecified site ==

== ENCOUNTER → 2022-06-23 | Outpatient (CLI) | payer BC | LOC: WCC 13:28 | PROVIDERS: ATTEND Family Medicine Adult Medicine | DX: T81.89XA Other complications of procedures, not elsewhere classified, initial encounter (principal); B35.1 Tinea unguium; K68.12 Psoas muscle abscess; I87.2 Venous insufficiency (chronic) (peripheral); I89.0 Lymphedema, not elsewhere classified; R60.0 Localized edema; N18.9 Chronic kidney disease, unspecified; I10 Essential (primary) hypertension; E03.9 Hypothyroidism, unspecified; M17.9 Osteoarthritis of knee, unspecified; A49.02 Methicillin resistant Staphylococcus aureus infection, unspecified site; E66.9 Obesity, unspecified ==

== ENCOUNTER → 2022-06-26 | Outpatient (CLI) | payer BC | LOC: WCC 14:40 | PROVIDERS: ATTEND Family Medicine Adult Medicine | DX: T81.89XA Other complications of procedures, not elsewhere classified, initial encounter (principal); K68.12 Psoas muscle abscess; B35.1 Tinea unguium; I87.2 Venous insufficiency (chronic) (peripheral); I89.0 Lymphedema, not elsewhere classified; R60.0 Localized edema; N18.9 Chronic kidney disease, unspecified; I10 Essential (primary) hypertension; E03.9 Hypothyroidism, unspecified; M17.9 Osteoarthritis of knee, unspecified; E66.3 Overweight; A49.02 Methicillin resistant Staphylococcus aureus infection, unspecified site ==

== ENCOUNTER → 2022-06-29 | Outpatient (CLI) | payer BC | LOC: WCC 13:57 | PROVIDERS: ATTEND Family Medicine | DX: T81.89XA Other complications of procedures, not elsewhere classified, initial encounter (principal); K68.12 Psoas muscle abscess; B35.1 Tinea unguium; I87.2 Venous insufficiency (chronic) (peripheral); I89.0 Lymphedema, not elsewhere classified; R60.0 Localized edema; N18.9 Chronic kidney disease, unspecified; I10 Essential (primary) hypertension; E03.9 Hypothyroidism, unspecified; M17.9 Osteoarthritis of knee, unspecified; E66.3 Overweight; A49.02 Methicillin resistant Staphylococcus aureus infection, unspecified site ==

== ENCOUNTER → 2022-07-02 | Outpatient (CLI) | payer BC | LOC: WCC 08:42 | PROVIDERS: ATTEND Family Medicine Adult Medicine | DX: T81.89XA Other complications of procedures, not elsewhere classified, initial encounter (principal); K68.12 Psoas muscle abscess; B35.1 Tinea unguium; I87.2 Venous insufficiency (chronic) (peripheral); I89.0 Lymphedema, not elsewhere classified; R60.0 Localized edema; N18.9 Chronic kidney disease, unspecified; I10 Essential (primary) hypertension; E03.9 Hypothyroidism, unspecified; M17.9 Osteoarthritis of knee, unspecified; A49.02 Methicillin resistant Staphylococcus aureus infection, unspecified site; E66.3 Overweight ==

== ENCOUNTER → 2022-07-06 | Outpatient (CLI) | payer BC | LOC: WCC 14:41 | PROVIDERS: ATTEND Family Medicine Adult Medicine | DX: T81.89XA Other complications of procedures, not elsewhere classified, initial encounter (principal); K68.12 Psoas muscle abscess; B35.1 Tinea unguium; R60.0 Localized edema; N18.9 Chronic kidney disease, unspecified; I10 Essential (primary) hypertension; M17.9 Osteoarthritis of knee, unspecified; E03.9 Hypothyroidism, unspecified; E66.3 Overweight; A49.02 Methicillin resistant Staphylococcus aureus infection, unspecified site ==

== ENCOUNTER → 2022-07-09 | Outpatient (CLI) | payer BC | LOC: WCC 13:42 | PROVIDERS: ATTEND Family Medicine Adult Medicine | DX: T81.89XA Other complications of procedures, not elsewhere classified, initial encounter (principal); K68.12 Psoas muscle abscess; B35.1 Tinea unguium; I87.2 Venous insufficiency (chronic) (peripheral); I89.0 Lymphedema, not elsewhere classified; R60.0 Localized edema; N18.9 Chronic kidney disease, unspecified; I10 Essential (primary) hypertension; E03.9 Hypothyroidism, unspecified; M17.9 Osteoarthritis of knee, unspecified; A49.02 Methicillin resistant Staphylococcus aureus infection, unspecified site; E66.3 Overweight ==

== ENCOUNTER → 2022-07-13 | Outpatient (CLI) | payer BC | LOC: WCC 15:24 | PROVIDERS: ATTEND Family Medicine Adult Medicine | DX: T81.89XA Other complications of procedures, not elsewhere classified, initial encounter (principal); K68.12 Psoas muscle abscess; B35.1 Tinea unguium; I87.2 Venous insufficiency (chronic) (peripheral); I89.0 Lymphedema, not elsewhere classified; R60.0 Localized edema; N18.9 Chronic kidney disease, unspecified; I10 Essential (primary) hypertension; E03.9 Hypothyroidism, unspecified; M17.9 Osteoarthritis of knee, unspecified; E66.3 Overweight; A49.02 Methicillin resistant Staphylococcus aureus infection, unspecified site ==

== ENCOUNTER → 2022-07-16 | Outpatient (CLI) | payer BC | LOC: WCC 14:51 | PROVIDERS: ATTEND Family Medicine Adult Medicine | DX: T81.89XA Other complications of procedures, not elsewhere classified, initial encounter (principal); K68.12 Psoas muscle abscess; B35.1 Tinea unguium; I87.2 Venous insufficiency (chronic) (peripheral); I89.0 Lymphedema, not elsewhere classified; L98.8 Other specified disorders of the skin and subcutaneous tissue; R60.0 Localized edema; N18.9 Chronic kidney disease, unspecified; I10 Essential (primary) hypertension; E03.9 Hypothyroidism, unspecified; M17.9 Osteoarthritis of knee, unspecified; E66.3 Overweight; A49.02 Methicillin resistant Staphylococcus aureus infection, unspecified site ==

== ENCOUNTER → 2022-07-20 | Outpatient (CLI) | payer BC | LOC: WCC 14:03 | PROVIDERS: ATTEND Family Medicine Adult Medicine | DX: T81.89XA Other complications of procedures, not elsewhere classified, initial encounter (principal); K68.12 Psoas muscle abscess; B35.1 Tinea unguium; R60.0 Localized edema; L98.8 Other specified disorders of the skin and subcutaneous tissue; I89.0 Lymphedema, not elsewhere classified; I87.2 Venous insufficiency (chronic) (peripheral); N18.9 Chronic kidney disease, unspecified; I10 Essential (primary) hypertension; E03.9 Hypothyroidism, unspecified; M17.9 Osteoarthritis of knee, unspecified; E66.3 Overweight; A49.02 Methicillin resistant Staphylococcus aureus infection, unspecified site ==

== ENCOUNTER → 2022-07-23 | Outpatient (CLI) | payer BC | LOC: WCC 13:13 | PROVIDERS: ATTEND Family Medicine Adult Medicine | DX: T81.89XA Other complications of procedures, not elsewhere classified, initial encounter (principal); K68.12 Psoas muscle abscess; B35.1 Tinea unguium; I87.2 Venous insufficiency (chronic) (peripheral); I89.0 Lymphedema, not elsewhere classified; R60.0 Localized edema; L98.8 Other specified disorders of the skin and subcutaneous tissue; N18.9 Chronic kidney disease, unspecified; I10 Essential (primary) hypertension; E03.9 Hypothyroidism, unspecified; M17.9 Osteoarthritis of knee, unspecified; A49.02 Methicillin resistant Staphylococcus aureus infection, unspecified site; E66.3 Overweight ==

== ENCOUNTER → 2022-07-27 | Outpatient (CLI) | payer BC | LOC: WCC 14:31 | PROVIDERS: ATTEND Family Medicine Adult Medicine | DX: T81.89XA Other complications of procedures, not elsewhere classified, initial encounter (principal); K68.12 Psoas muscle abscess; B35.1 Tinea unguium; L98.8 Other specified disorders of the skin and subcutaneous tissue; R60.0 Localized edema; I87.2 Venous insufficiency (chronic) (peripheral); I89.0 Lymphedema, not elsewhere classified; N18.9 Chronic kidney disease, unspecified; I10 Essential (primary) hypertension; E03.9 Hypothyroidism, unspecified; M17.9 Osteoarthritis of knee, unspecified; E66.3 Overweight; A49.02 Methicillin resistant Staphylococcus aureus infection, unspecified site ==

== ENCOUNTER → 2022-07-30 | Outpatient (CLI) | payer BC | LOC: WCC 10:57 | PROVIDERS: ATTEND Family Medicine Adult Medicine | DX: T81.89XA Other complications of procedures, not elsewhere classified, initial encounter (principal); K68.12 Psoas muscle abscess; B35.1 Tinea unguium; L98.8 Other specified disorders of the skin and subcutaneous tissue; I89.0 Lymphedema, not elsewhere classified; I87.2 Venous insufficiency (chronic) (peripheral); R60.0 Localized edema; N18.9 Chronic kidney disease, unspecified; I10 Essential (primary) hypertension; E03.9 Hypothyroidism, unspecified; M17.9 Osteoarthritis of knee, unspecified; A49.02 Methicillin resistant Staphylococcus aureus infection, unspecified site; E66.3 Overweight ==

== ENCOUNTER → 2022-08-03 | Outpatient (CLI) | payer BC | LOC: WCC 14:32 | PROVIDERS: ATTEND Family Medicine Adult Medicine | DX: T81.89XA Other complications of procedures, not elsewhere classified, initial encounter (principal); K68.12 Psoas muscle abscess; B35.1 Tinea unguium; I87.2 Venous insufficiency (chronic) (peripheral); I89.0 Lymphedema, not elsewhere classified; R60.0 Localized edema; L98.8 Other specified disorders of the skin and subcutaneous tissue; N18.9 Chronic kidney disease, unspecified; I10 Essential (primary) hypertension; E03.9 Hypothyroidism, unspecified; M17.9 Osteoarthritis of knee, unspecified; E66.3 Overweight; A49.02 Methicillin resistant Staphylococcus aureus infection, unspecified site ==

== ENCOUNTER → 2022-08-06 | Outpatient (CLI) | payer BC ==
[~2022-08-06] MED LIST changes: +LIDOCAINE VISC 2% SOLN 15 ML UDC ONE
== END ==
LOC: WCC 10:03
PROVIDERS: ATTEND Family Medicine Adult Medicine
DX: T81.89XA Other complications of procedures, not elsewhere classified, initial encounter (principal); K68.12 Psoas muscle abscess; B35.1 Tinea unguium; I87.2 Venous insufficiency (chronic) (peripheral); I89.0 Lymphedema, not elsewhere classified; R60.0 Localized edema; L98.8 Other specified disorders of the skin and subcutaneous tissue; N18.9 Chronic kidney disease, unspecified; I10 Essential (primary) hypertension; E03.9 Hypothyroidism, unspecified; A49.02 Methicillin resistant Staphylococcus aureus infection, unspecified site; M17.9 Osteoarthritis of knee, unspecified; E66.3 Overweight

== ENCOUNTER → 2022-08-11 | Outpatient (CLI) | payer BC ==
[~2022-08-11] MED LIST changes: -LIDOCAINE VISC 2% SOLN 15 ML UDC ONE
== END ==
LOC: WCC 10:43
PROVIDERS: ATTEND Family Medicine Adult Medicine
DX: T81.89XA Other complications of procedures, not elsewhere classified, initial encounter (principal); B35.1 Tinea unguium; K68.12 Psoas muscle abscess; I87.2 Venous insufficiency (chronic) (peripheral); L98.8 Other specified disorders of the skin and subcutaneous tissue; I89.0 Lymphedema, not elsewhere classified; R60.0 Localized edema; N18.9 Chronic kidney disease, unspecified; I10 Essential (primary) hypertension; E03.9 Hypothyroidism, unspecified; M17.9 Osteoarthritis of knee, unspecified; A49.02 Methicillin resistant Staphylococcus aureus infection, unspecified site; E66.3 Overweight

== ENCOUNTER → 2022-08-18 | Outpatient (CLI) | payer BC | LOC: WCC 11:45 | PROVIDERS: ATTEND Podiatrist Foot & Ankle Surgery | DX: T81.89XA Other complications of procedures, not elsewhere classified, initial encounter (principal); K68.12 Psoas muscle abscess; B35.1 Tinea unguium; I87.2 Venous insufficiency (chronic) (peripheral); I89.0 Lymphedema, not elsewhere classified; L98.8 Other specified disorders of the skin and subcutaneous tissue; R60.0 Localized edema; N18.9 Chronic kidney disease, unspecified; I10 Essential (primary) hypertension; E66.3 Overweight; E03.9 Hypothyroidism, unspecified; A49.02 Methicillin resistant Staphylococcus aureus infection, unspecified site; M17.9 Osteoarthritis of knee, unspecified ==

== ENCOUNTER 2023-02-04 21:50 | Inpatient (IN) | payer BC ==
[~2023-02-04] VITALS: Ht 188 cm; Wt 167.8 kg
[2023-02-04 22:58] LABS: BASOPHILS % 0.2 % (0.0-1.0); EOSINOPHILS # (AUTO) 0.1 (0.0-0.4); EOSINOPHILS % 0.5 % (0.0-6.0); HEMATOCRIT 42.3 % (38.2-49.6); HEMOGLOBIN 14.2 g/dL (14.0-18.0); LYMPHOCYTES # (AUTO) 0.8 (1.0-3.2); MEAN CORPUSCULAR HEMOGLOBIN 34.3 pg (28-32); MEAN CORPUSCULAR HGB CONC 33.6 g/dL (31-35); MEAN CORPUSCULAR VOLUME 102.2 fL (81-99); MONOCYTES % 10.1 % (4.4-11.3); NEUTROPHILS # (AUTO) 7.6 (2.1-6.9); NEUTROPHILS % 80.9 % (38.7-80.0); PLATELET COUNT 165 x10e3/uL (140-360); RED BLOOD COUNT 4.14 x10e6/uL (4.3-5.7); RED CELL DISTRIBUTION WIDTH 14.5 % (11.7-14.4)
[2023-02-04 23:09] LABS: INR 1.17; PARTIAL THROMBOPLASTIN TIME 32.4 seconds (23.8-35.5); PROTHROMBIN TIME 15.4 seconds (11.9-14.5)
[2023-02-04 23:18] LABS: ALBUMIN/GLOBULIN RATIO 1.1 (0.8-2.0); CREATININE, SERUM 1.5 mg/dL (0.72-1.25)
[2023-02-05] VITALS (10 sets, daily range): BP systolic 115–150; BP diastolic 56–86; PULSE 70–97; RESP 18–22; TEMP 97.5–99; O2SAT 95–100
[2023-02-05 00:23] LABS: CLARITY,URINE SL CLOUDY (CLEAR); COLOR,URINE AMBER (YELLOW); KETONES,URINE 2+ (NEGATIVE); LEUKOCYTE ESTERASE ,URINE TRACE (NEGATIVE); NITRITE,URINE NEGATIVE (NEGATIVE); PROTEIN,URINE DIPSTICK 2+ (NEGATIVE); URINE UROBILINOGEN 0.2 mg/dL (0.2 - 1)
[2023-02-05 00:29] LABS: AMORPHOUS SEDIMENT,URINE MODERATE (FEW); BACTERIA,URINE FEW /HPF; EPITHELIAL CELLS,URINE RARE /LPF; RBC,URINE 0-5 /HPF (0-5)
[2023-02-05] MEDS ORDERED: ACETAMINOPHEN 325 MG TAB ONE (00:48)
[2023-02-05] MEDS ORDERED: ACETAMINOPHEN 325 MG TAB PO ONE (01:15)
[2023-02-05] MEDS ORDERED: FLUCONAZOLE 200 MG/100 ML 100 ML IV SCH (04:00)
[2023-02-05] MEDS ORDERED: ONDANSETRON HCL INJ 2MG/ML 2ML 2 MG/ML VIAL IV PRN (04:00)
[2023-02-05] MEDS ORDERED: LOSARTAN-HCTZ1 EACH PO (05:36)
[2023-02-05] MEDS: SODIUM CHLORIDE 0.9% 1000ML 1,000 ML IV SCH ×2 (06:02→17:12)
[2023-02-05] MEDS ORDERED: ONDANSETRON HCL 4 MG ORAL DISINTEGRATING TAB PO PRN (10:00)
[2023-02-05] MEDS: LOSARTAN POTASSIUM 25 MG TAB PO SCH (11:56)
[2023-02-05] MEDS: HYDROCHLOROTHIAZIDE 25 MG TAB PO SCH (11:57)
[2023-02-06] VITALS (11 sets, daily range): BP systolic 111–146; BP diastolic 57–85; PULSE 71–85; RESP 14–21; TEMP 98.1–98.7; O2SAT 96–100
[2023-02-06 08:30] LABS: BASOPHILS % 0.7 % (0.0-1.0); EOSINOPHILS # (AUTO) 0.3 (0.0-0.4); EOSINOPHILS % 4.4 % (0.0-6.0); HEMATOCRIT 39.3 % (38.2-49.6); HEMOGLOBIN 13.4 g/dL (14.0-18.0); LYMPHOCYTES % 17.1 % (18.0-39.1); MEAN CORPUSCULAR HEMOGLOBIN 35.3 pg (28-32); MEAN CORPUSCULAR HGB CONC 34.1 g/dL (31-35); MEAN CORPUSCULAR VOLUME 103.4 fL (81-99); MONOCYTES # (AUTO) 0.7 (0.2-0.8); MONOCYTES % 11.2 % (4.4-11.3); NEUTROPHILS % 66.3 % (38.7-80.0); PLATELET COUNT 137 x10e3/uL (140-360); RED CELL DISTRIBUTION WIDTH 14.3 % (11.7-14.4)
[2023-02-06 08:57] LABS: ALBUMIN 3.3 g/dL (3.5-5.0); ALBUMIN/GLOBULIN RATIO 1.1 (0.8-2.0); ANION GAP 11.8 mmol/L (8-16); CALCIUM 8.3 mg/dL (8.4-10.2); CREATININE, SERUM 1.18 mg/dL (0.72-1.25); POTASSIUM 3.8 mmol/L (3.5-5.1)
[2023-02-06] MEDS ORDERED: FLUCONAZOLE 200 MG/100 ML 100 ML IV SCH (09:00)
[2023-02-06] MEDS: HYDROCHLOROTHIAZIDE 25 MG TAB PO SCH (09:47)
[2023-02-06] MEDS: LOSARTAN POTASSIUM 25 MG TAB PO SCH (09:47)
[2023-02-06] MEDS: SODIUM CHLORIDE 0.9% 1000ML 1,000 ML IV SCH (09:54)
[2023-02-06] MEDS: TRAMADOL HCL 50 MG TAB PO PRN (12:16)
[2023-02-06] MEDS: NYSTATIN 15 GM POWDER UD BTL TOP SCH (17:00)
[2023-02-06] MEDS: ENOXAPARIN SOD INJ 40 MG/0.4 ML SYR SC SCH (17:00)
[2023-02-07] VITALS (10 sets, daily range): BP systolic 106–145; BP diastolic 61–85; PULSE 70–84; RESP 18–22; TEMP 97.5–98.6; O2SAT 97–100
[2023-02-07] MEDS: TRAMADOL HCL 50 MG TAB PO PRN ×2 (02:04→22:00)
[2023-02-07] MEDS: CEFTRIAXONE 2 GM in SODIUM CHLORIDE 0.9% 100 ML IV SCH (09:31)
[2023-02-07] MEDS: NYSTATIN 15 GM POWDER UD BTL TOP SCH ×2 (09:32→16:11)
[2023-02-07] MEDS: MUPIROCIN 2% OINT 22 GM TUBE TOP SCH (09:32)
[2023-02-07] MEDS: HYDROCHLOROTHIAZIDE 25 MG TAB PO SCH (09:33)
[2023-02-07] MEDS: LOSARTAN POTASSIUM 25 MG TAB PO SCH (09:33)
[2023-02-07] MEDS: ENOXAPARIN SOD INJ 40 MG/0.4 ML SYR SC SCH (16:11)
[2023-02-08] VITALS (10 sets, daily range): BP systolic 126–147; BP diastolic 53–73; PULSE 78–84; RESP 14–20; TEMP 97.5–100.3; O2SAT 97–99
[2023-02-08] MEDS: TRAMADOL HCL 50 MG TAB PO PRN (05:52)
[2023-02-08] MEDS: HYDROCHLOROTHIAZIDE 25 MG TAB PO SCH (09:25)
[2023-02-08] MEDS: CEFTRIAXONE 2 GM in SODIUM CHLORIDE 0.9% 100 ML IV SCH (09:25)
[2023-02-08] MEDS: LOSARTAN POTASSIUM 25 MG TAB PO SCH (09:26)
[2023-02-08] MEDS: MUPIROCIN 2% OINT 22 GM TUBE TOP SCH (09:26)
[2023-02-08] MEDS: NYSTATIN 15 GM POWDER UD BTL TOP SCH ×2 (09:26→17:45)
[2023-02-08] MEDS: ENOXAPARIN SOD INJ 40 MG/0.4 ML SYR SC SCH (17:45)
[2023-02-09] VITALS (12 sets, daily range): BP systolic 128–141; BP diastolic 69–77; PULSE 81–87; RESP 16–20; TEMP 97.8–99.1; O2SAT 96–98
[2023-02-09] MEDS: LOSARTAN POTASSIUM 25 MG TAB PO SCH (09:16)
[2023-02-09] MEDS: NYSTATIN 15 GM POWDER UD BTL TOP SCH ×2 (09:17→17:52)
[2023-02-09] MEDS: MUPIROCIN 2% OINT 22 GM TUBE TOP SCH (09:17)
[2023-02-09] MEDS: HYDROCHLOROTHIAZIDE 25 MG TAB PO SCH (09:17)
[2023-02-09] MEDS: CEFTRIAXONE 2 GM in SODIUM CHLORIDE 0.9% 100 ML IV SCH (09:18)
[2023-02-09] MEDS: ENOXAPARIN SOD INJ 40 MG/0.4 ML SYR SC SCH (17:52)
[2023-02-10] VITALS (7 sets, daily range): BP systolic 144–149; BP diastolic 60–82; PULSE 73–85; RESP 13–20; TEMP 97.7–98.3; O2SAT 93–98
[2023-02-10] MEDS: LOSARTAN POTASSIUM 25 MG TAB PO SCH (08:53)
[2023-02-10] MEDS: CEFTRIAXONE 2 GM in SODIUM CHLORIDE 0.9% 100 ML IV SCH (08:53)
[2023-02-10] MEDS: HYDROCHLOROTHIAZIDE 25 MG TAB PO SCH (08:53)
[2023-02-10] MEDS: NYSTATIN 15 GM POWDER UD BTL TOP SCH (08:54)
[2023-02-10] MEDS: MUPIROCIN 2% OINT 22 GM TUBE TOP SCH (08:54)
== END 2023-02-10 13:14 | DRG 872 ==
LOC: ER 22:40 → ERHOLD 02-05 04:08 → INTOOBSV 02-05 04:08 → MED/SURG2 02-05 04:51 → OBSVTOIN 02-08 09:46
PROVIDERS: ADMIT Family Medicine; ATTEND Family Medicine
DX: A41.9 Sepsis, unspecified organism (principal); L03.116 Cellulitis of left lower limb; L03.115 Cellulitis of right lower limb; Z68.42 Body mass index [BMI] 45.0-49.9, adult; N39.0 Urinary tract infection, site not specified; E66.01 Morbid (severe) obesity due to excess calories; I10 Essential (primary) hypertension; M19.90 Unspecified osteoarthritis, unspecified site; G47.30 Sleep apnea, unspecified; B37.9 Candidiasis, unspecified; M79.3 Panniculitis, unspecified; Z86.16 Personal history of COVID-19; Z87.891 Personal history of nicotine dependence; Z79.82 Long term (current) use of aspirin
CPT/HCPCS: 36415; 70450; 71045; 80053; 81001; 82948; 83605; 83880; 84484; 85025; 85610; 85730; 87040; 87086; 93005; 94660; 94799; 99252; 99284; G0378; J0696; J1450; J1650; J7030; J7050